=== PATIENT | female | born 1930 | race Caucasian/White ===

== ENCOUNTER 2016-10-17 06:35 | Day surgery (SDC) | payer MEDICARE, OTHER, MEDICAID ==
--- NOTE | 2016-10-13 11:29 | PREOP ---
ADMISSION DATE: 10/17/2016 CHIEF COMPLAINT: Lesion, left restoration. HISTORY OF PRESENT ILLNESS: This is an 86-year-old white female, who has had a slow growing lesion on her left restoration, appears to be consistent with a basal cell carcinoma, it is approximately 2 cm in diameter. I have been asked to assess for excisional biopsy. The nursing staff reports that it bleeds on occasion. She has also got several other skin lesions on the forehead and scalp, which have not responded to treatment as well. PAST MEDICAL HISTORY: Significant for type 2 diabetes, dementia, hypertension, history of abdominal hernia, anorexia. ALLERGIES: She has no known drug allergies. MEDICATIONS: 1. Sodium bicarb p.r.n. basis. 2. Norvasc 5 mg 2 times per day. 3. Amaryl 2 mg one time per day. 4. Vitamin D3 1000 units daily. 5. Coreg 6.25 mg 2 times a day. 6. Losartan 25 mg once a day. 7. Calcitriol 0.25 mcg on a p.r.n. basis. REVIEW OF SYSTEMS: Essentially unobtainable. PHYSICAL EXAMINATION: GENERAL: This is a well-developed, well-nourished female, appearing about her stated age. HEENT: Remarkable for the above-noted raised erythematous lesion on her left restoration as well as several other scaly lesions noted along her forehead and into her hairline. Otherwise, her ear, nose, and throat exam was grossly within normal limits. LUNGS: Clear to auscultation. HEART: Regularly regular. ABDOMEN: Soft, nontender. 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 PLAN: Excisional biopsy. On Monday, we will be obtaining information from her son prior to surgery. /[id number] /MODL
[2016-10-17] MEDS ORDERED: Lactated Ringers 1,000 ML IV SCH (07:30)
[2016-10-17] MEDS ORDERED: Propofol 200 MG/20 ML SDV IV ONE (08:00)
[2016-10-17] MEDS ORDERED: Bupivacaine 0.5% 30 ML SDV ONE (08:17)
[2016-10-17] MEDS ORDERED: Lidocaine 1% with EPINEPHrine 1:100,000 20 ML MDV ONE (08:17)
--- NOTE | 2016-10-17 09:36 | PCM.OPNOTE ---
- General Post-Op/Procedure Note Date of Surgery/Procedure: 10/17/16 Operative Procedure(s): excisional bx of left worship lesion and forehead lesion Findings: 2 cm worship lesion 1 cm forehead lesion Pre Op Diagnosis: skin lesion Post-Op Diagnosis: 2 cm worship lesion. 1 cm forehead lesion Anesthesia Technique: MAC Primary Surgeon: Yevgeniy Slaughter Anesthesia Provider: Peña Serrano Pathology: 2 cm worship lesion 1 cm forehead lesion Complications: None Condition: Good Free Text/Narrative:: see dictation
[2016-10-17] MEDS ORDERED: Acetaminophen/HYDROcodone 325-5 MG Tab PO PRN (09:40)
[2016-10-17] MEDS ORDERED: Acetaminophen/Codeine 300-30 MG Tab PO PRN (09:40)
[2016-10-17 11:15] VITALS: BP 147/79
--- NOTE | 2016-10-21 18:10 | OR ---
DATE OF OPERATION: 10/21/2016 SURGEON: Yevgeniy Slaughter MD PROCEDURE PERFORMED: Excisional biopsy of left church lesion and biopsy of a right forehead lesion. PREOPERATIVE DIAGNOSIS: Skin lesions of the scalp. POSTOPERATIVE DIAGNOSIS: A 2 cm church lesion on the left side and 1 cm forehead lesion on the left side. INDICATIONS FOR PROCEDURE: This is an 86-year-old white female who has a history of a raised ulcerative lesion on her left church. In addition, she has some flat scalp lesions involving the hairline as well as the midaspect of the forehead. These have been resistant to treatment. She was offered and accepted a biopsy of the forehead lesion and an excisional biopsy of the left church lesion. DESCRIPTION OF PROCEDURE: After an excellent IV sedation was administered, the patient was prepped and draped in the usual sterile manner. Using a ruler, a 5 mm border was marked out around the patient's left church lesion. The area was then infiltrated with a 1:1 mixture of 1% lidocaine with epinephrine and 0.5% bupivacaine. The lesion was excised in a circular fashion and carefully dissected free from the underlying tissue underneath. The specimen was then oriented with sutures and passed off the field. The repair of the defect was effected using a modified rhomboid flap technique and further incision with a 60- degree angle going laterally was then marked out. The length of both of these structures being the exact diameter of the defect itself. The area was then infiltrated and our incision was made. Careful dissection was carried out raising the flap, which was then rotated. The skin edges were reapproximated closing the defects rather nicely. Bleeding was controlled with electrocautery. Our attention was then turned to the scalp. It should be noted that 3-0 nylons were used to approximate skin defect. Our attention was then turned to the forehead. The area was irrigated and infiltrated with more local, a total of approximately 8 mL were used. An elliptical incision was then carried out, and the specimen was passed off the field after orientation. Two skin edges were placed on each other, and the wound was closed. Dressings were applied. The patient was taken back to Recovery in good condition having tolerated the procedure well. /[id number] /MODL
== END 2016-10-17 11:51 | disposition home or self-care (01) ==
LOC: FB.SDS 06:35
PROVIDERS: ATTEND Surgery
DX: C44.319 Basal cell carcinoma of skin of other parts of face (principal); L57.0 Actinic keratosis; I10 Essential (primary) hypertension; E11.9 Type 2 diabetes mellitus without complications; F03.90 Unspecified dementia, unspecified severity, without behavioral disturbance, psychotic disturbance, mood disturbance, and anxiety; Z79.899 Other long term (current) drug therapy
CPT/HCPCS: 00164; 11441; 11643; 82962; 88305; A9270; J2704; J7120

== ENCOUNTER 2017-04-28 16:41 | Emergency (ER) | payer MEDICARE, OTHER, MEDICAID ==
--- NOTE | 2017-04-28 17:24 | EDM.PDOC ---
ED HPI GENERAL MEDICAL PROBLEM - General Chief Complaint: Neuro Symptoms/Deficits Stated Complaint: SLURRED SPEECH, UNSTEADY GAIT Time Seen by Provider: 04/28/17 16:41 Source of Information: Reports: Patient, RN History Limitations: Reports: Altered Mental Status, Physical Impairment - History of Present Illness INITIAL COMMENTS - FREE TEXT/NARRATIVE: 86 y.o.w.f from snf with a H/O dementia fell in the morning and was seen in the ED. A CT head was done, which was neg. The pt was sent back to the snf. We receive a phone call from the snf stating the patient is behaving "differently"?. She may have a left sided facial droop. Pt is not able to give a HPI, No family is present. BP 193/68 RR 20 Temp 36.9 Pulse 82 O2 sat 96% Onset Date: 04/28/17 Onset Time: 16:00 Duration: Hour(s): Location: Reports: Head Quality: Reports: Other (unable to determine) Context: Reports: Trauma - Related Data Allergies Allergy/AdvReac Type Severity Reaction Status Date / Time No Known Allergies Allergy Verified 04/28/17 17:17 Home Meds: Home Meds Carvedilol 6.25 mg PO BIDMEALS 08/18/14 [History] amLODIPine [Norvasc] 5 mg PO BID 08/18/14 [History] Sodium Bicarbonate 650 mg PO BID #60 tablet 11/24/15 [Rx] Acetaminophen with Codeine [Tylenol with Codeine #3 Tablet] 1 each PO Q4HR PRN # 20 tablet 10/17/16 [Rx] Calcitriol [Rocaltrol] 0.25 mcg PO ASDIRECTED 10/17/16 [History] Cholecalciferol (Vitamin D3) [Vitamin D3] 1,000 unit PO DAILY 10/17/16 [History] Glimepiride [Amaryl] 1 mg PO WITHBREAKFAST 10/17/16 [History] Losartan [Cozaar] 25 mg PO DAILY 10/17/16 [History] Past Medical History HEENT History: Reports: Cataract, Impaired Vision, Macular Degeneration Other HEENT History: CHRONIC FACIAL LESIONS Cardiovascular History: Reports: High Cholesterol, Hypertension Respiratory History: Reports: SOB Gastrointestinal History: Reports: Diverticulosis, Gastritis, GERD 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: Musculoskeletal History: Reports: Arthritis, Osteoarthritis Other Musculoskeletal History: CLOSED FX OF ISHMELITONM Psychiatric History: Reports: Anxiety, Dementia, Depression Endocrine/Metabolic History: Reports: Diabetes, Type II Dermatologic History: Reports: Other (See Below) Other Dermatologic History: dermatitis - Infectious Disease History Infectious Disease History: Reports: Other (See Below) Other Infectious Disease History: PT CONFUSED AND UNSURE OF THIS - Past Surgical History GI Surgical History: Reports: Colonoscopy Social & Family History - Family History Family Medical History: Unobtainable - Tobacco Use Smoking Status *Q: Never Smoker Second Hand Smoke Exposure: No - Caffeine Use Caffeine Use: Reports: None - Alcohol Use Days Per Week of Alcohol Use: 0 - Recreational Drug Use Recreational Drug Use: No ED ROS GENERAL - Review of Systems Review Of Systems: Unable To Obtain (dementia) ED EXAM, NEURO - Physical Exam Exam: See Below Exam Limited By: Altered Mental Status General Appearance: Alert, WD/WN, No Apparent Distress Eye Exam: Bilateral Eye: Normal Inspection Ears: Normal External Exam Nose: Normal Inspection Throat/Mouth: Normal Inspection Head Exam: Atraumatic Neck: Normal Inspection Respiratory/Chest: No Respiratory Distress Cardiovascular: Normal Peripheral Pulses (elevate BP), Regular Rate, Rhythm, No Edema GI/Abdominal: Normal Bowel Sounds (Female) Exam: Deferred Rectal (Female) Exam: Deferred Neurological: Alert, CN II-XII Intact (poss left facial droop, minor) Back Exam: Normal Inspection Extremities: Normal Inspection, Normal Range of Motion, Non-Tender Psychiatric: Depressed Mood, Other (dementia) Skin Exam: Warm, Dry, Intact, Normal Color, No Rash Course - Vital Signs Text/Narrative:: 86 y.o.w.f from snf with a H/O dementia fell in the morning and was seen in the ED. A CT head was done, which was neg. The pt was sent back to the snf. We receive a phone call from the snf stating the patient is behaving "differently"?. She may have a left sided facial droop. Pt is not able to give a HPI, No family is present. BP 193/68 RR 20 Temp 36.9 Pulse 82 O2 sat 96% PE: Thin 86 y.o.w.f, smiling, no facial droop, severely demented. Not in any obvious discomfort Impression: S/P fall Reexam: Pt was doing better Plan: Back to [place]. BP was 135/67 rechecked as soon the patient was back in the NH Was doing fine. Last Recorded V/S: Last Vital Signs Temp 36.9 C 04/28/17 17:30 Pulse 82 04/28/17 17:58 Resp 16 04/28/17 17:58 BP 193/68 H 04/28/17 17:58 Pulse Ox 100 04/28/17 17:58 - Orders/Labs/Meds Orders: Active Orders 24 hr Category Date Time Status Accu Check [Blood Glucose Check, Bedside] [RC] ONETIME Care 04/28/17 17:52 Active Labs: Laboratory Tests 04/28/17 Range/Units 17:24 POC Glucose 128 H (80-116) mg/dL Departure - Departure Time of Disposition: 17:21 Disposition: Home, Self-Care 01 Condition: Good Clinical Impression: Dementia, Brain concussion Fall Qualifiers: Encounter type: subsequent encounter Qualified Code(s): W19.XXXD - Unspecified fall, subsequent encounter - Discharge Information Referrals: Haile Goldstein MD [Primary Care Provider] - Forms: ED Department Discharge Additional Instructions: Please cont your meds, please f/u with your PMD this monday, please come back if your symptoms get worse acutely - My Orders Last 24 Hours: My Active Orders 04/28/17 17:52 Accu Check [Blood Glucose Check, Bedside] [RC] ONETIME - Assessment/Plan Last 24 Hours: My Active Orders 04/28/17 17:52 Accu Check [Blood Glucose Check, Bedside] [RC] ONETIME
[2017-04-28 17:42] VITALS: BP 193/68
== END 2017-04-28 17:56 | disposition home or self-care (01) ==
LOC: FB.ED 16:41
DX: S06.0X0A Concussion without loss of consciousness, initial encounter (principal); F03.90 Unspecified dementia, unspecified severity, without behavioral disturbance, psychotic disturbance, mood disturbance, and anxiety; I10 Essential (primary) hypertension; E11.9 Type 2 diabetes mellitus without complications; Z79.899 Other long term (current) drug therapy; W19.XXXA Unspecified fall, initial encounter
CPT/HCPCS: 82962; 99283